=== PATIENT | female | born 1950 | race Caucasian/White ===

== ENCOUNTER 2018-05-29 07:10 | Outpatient (CLI) | payer OTHER ==
--- NOTE | 2018-05-29 08:34 | ULT ---
ABDOMINAL ULTRASOUND: Date: 05/29/18 HISTORY: Abdominal pain. Elevated LFTs. FINDINGS: Real-time images of the upper abdomen demonstrate that the gallbladder has been removed. The common d uct is 4.0 mm. Liver shows no focal lesions. It measures approximately 15-16 cm in length. The spleen measures 9.9 cm. Pancreas partially obscured. Abdominal aorta and IVC regions appear unremarkable. R ight and left kidneys are within normal limits of size and not obstructed. IMPRESSION: Postop cholecystectomy change. POS: [id number]
== END 2018-05-29 07:11 | disposition home or self-care (01) ==
LOC: SCSULT 07:10
PROVIDERS: ATTEND Internal Medicine
DX: R94.5 Abnormal results of liver function studies (principal); R10.10 Upper abdominal pain, unspecified; Z90.49 Acquired absence of other specified parts of digestive tract
CPT/HCPCS: 76700

== ENCOUNTER 2025-06-02 09:15 | Outpatient (CLI) | payer OTHER | END 2025-06-02 09:16 | disposition home or self-care (01) | LOC: SCSBT 09:15 | PROVIDERS: ATTEND Family Medicine | DX: Z78.0 Asymptomatic menopausal state (principal); M81.0 Age-related osteoporosis without current pathological fracture | CPT/HCPCS: 77080 ==